=== PATIENT | male | born 1930 | race Caucasian/White ===

== ENCOUNTER 2019-08-28 12:56 | Inpatient (IN) | payer BC, OTHER ==
[~2019-08-28] VITALS: Ht 185.4 cm; Wt 93.0 kg
[2019-08-28] MEDS ORDERED: ALBUTEROL (0.083%) 2.5MG/3ML NEB HHN STA (13:09)
[2019-08-28] MEDS ORDERED: METHYLPREDNISOLONE SOD SUCC 125 MG/2 ML VIAL IV STA (13:09)
[2019-08-28] MEDS ORDERED: IPRATROPIUM BROMIDE (0.02%) 0.5MG/2.5ML NEB HHN STA (13:09)
[2019-08-28] MEDS ORDERED: SODIUM CHLORIDE 0.9% 1000ML BAG (SEPSIS BOLUS) IV ONE (13:15)
[2019-08-28] MEDS ORDERED: VANCOMYCIN 1 G PREMIX 200 ML IV ONE (13:15)
[2019-08-28] MEDS ORDERED: PIPERACILLIN/TAZ 3.375G PREMIX 50 ML IV ONE (13:15)
[2019-08-28 13:31] LABS: BASOPHILS % 0.2 % (0.0-2.0); EOSINOPHILS % 0.1 % (0.0-5.0); HEMATOCRIT. 33.5 % (42.0-52.0); HEMOGLOBIN. 11.3 g/dL (14.0-18.0); LYMPHOCYTES % 9.9 % (20.0-50.0); MEAN CORPUSCULAR HEMOGLOBIN 36.7 pg (28.0-32.0); MEAN CORPUSCULAR VOLUME 109.1 fL (80.0-94.0); MEAN PLATELET VOLUME 11.1 fl (7.4-10.4); MONOCYTES % 5.6 % (2.0-8.0); NEUTROPHILS % 84.2 % (40.0-76.0); PLATELET 268 x1000/uL (130-400); RED BLOOD CELL COUNT 3.07 mill/uL (4.7-6.1); RED CELL DISTRIBUTION WIDTH 20.9 % (11.6-14.6)
[2019-08-28 13:36] LABS: INR 1.6; PARTIAL THROMBOPLASTIN TIME 31.3 sec (23.4-31.0); PROTHROMBIN TIME 15.7 sec (9.6-11.0)
[2019-08-28 13:38] LABS: CHLORIDE 96 mEq/L (98-107)
[2019-08-28 13:52] LABS: BG BASE EXCESS 8.7 mmol/L (-2.0-2.0); BG BILEVEL POS AIRWAY PRESSURE 15/5; BG CARBOXYHEMOGLOBIN 0.3 % (0.5-1.5); BG DEOXYHEMOGLOBIN 0.4 % (0.0-5.0); BG FRACTION INSPIRED OXYGEN 100; BG HCO3 ACT 34.1 mmol/L (22.0-26.0); BG METHEMOGLOBIN 0.2 % (0.0-1.5); BG OXYGEN SATURATION 99.6 % (92.0-98.5); BG OXYHEMOGLOBIN 99.1 % (94.0-97.0); BG PCO2 51.2 mmHg (35.0-45.0); BG PH 7.441 (7.350-7.450); BG PO2 408.7 mmHg (75.0-100.0); BG SAMPLE SITE RIGHT RADIAL; BG TOTAL HEMOGLOBIN 10.7 g/dL (12.0-18.0); BG VENT MODE MASK - BIPAP; BG VENT RATE 16 set
[2019-08-28] MEDS ORDERED: DIGO125T82 MT (16:59)
[2019-08-28] MEDS ORDERED: FUROSEMIDE 40MG/4ML VIAL IVP NR (17:00)
[2019-08-28] MEDS ORDERED: IPRATROPIUM/ALBUTEROL 0.5-3(2.5)MG/3ML NEB HHN PRN (17:00)
[2019-08-28] MEDS ORDERED: PIPERACILLIN/TAZOBACTAM 3.375 G in DEXT 5% WATER 100 ML IV SCH (17:00)
[2019-08-28] MEDS ORDERED: ONDANSETRON HCL 4MG/2ML INJ IV PRN (17:00)
[2019-08-28] MEDS ORDERED: TAMS-11 PO (17:00)
[2019-08-28] MEDS ORDERED: TRAZ150T78 PO (17:00)
[2019-08-28] MEDS ORDERED: GLIP10TA10 PO (17:00)
[2019-08-28] MEDS ORDERED: QUET25TA34 PO (17:01)
[2019-08-28] MEDS ORDERED: FURO40TA5 PO (17:01)
[2019-08-28] MEDS ORDERED: ASPI-1393 PO (17:02)
[2019-08-28] MEDS ORDERED: CARB-33 PO (17:02)
[2019-08-28] MEDS ORDERED: CARV6.2548 PO (17:03)
[2019-08-28 19:21] LABS: CLARITY URINE CLEAR (CLEAR); COLOR URINE YELLOW (YELLOW); KETONES URINE NEGATIVE (NEGATIVE); LEUKOCYTE ESTERASE URINE NEGATIVE (NEGATIVE); NITRITE URINE NEGATIVE (NEGATIVE); OCCULT BLOOD URINE NEGATIVE (NEGATIVE); PH URINE 7.5 (4.5-8.0); PROTEIN URINE NEGATIVE (NEGATIVE); SPECIFIC GRAVITY URINE 1.008 (1.005-1.030); UROBILINOGEN URINE 0.2 E.U./dL (0.2-1.0)
[2019-08-28 22:30] VITALS: BP 116/84
[2019-08-28 23:31] VITALS: BP 116/64
[2019-08-29] VITALS (15 sets, daily range): BP systolic 78–112; BP diastolic 41–62
[2019-08-29] MEDS ORDERED: DEXTROSE 50% WATER 50ML SYRINGE IV PRN (00:15)
[2019-08-29] MEDS ORDERED: BISACODYL 5MG TABLET PO PRN (00:45)
[2019-08-29] MEDS ORDERED: TEMAZEPAM 15MG CAPSULE PO PRN (00:45)
[2019-08-29] MEDS: PIPERACILLIN/TAZOBACTAM 3.375 G in DEXT 5% WATER 100 ML IV SCH ×5 (01:12→23:43)
[2019-08-29] MEDS: BLOOD SUGAR DIAGNOSTIC STRIP TEST SCH ×4 (06:19→20:47)
[2019-08-29 06:39] LABS: CHLORIDE 98 mEq/L (98-107)
[2019-08-29 06:48] LABS: HEMATOCRIT. 27.8 % (42.0-52.0); HEMOGLOBIN. 9.6 g/dL (14.0-18.0); MEAN CORPUSCULAR HEMOGLOBIN 37.3 pg (28.0-32.0); MEAN PLATELET VOLUME 11.2 fl (7.4-10.4); PLATELET 239 x1000/uL (130-400); RED BLOOD CELL COUNT 2.57 mill/uL (4.7-6.1)
[2019-08-29] MEDS ORDERED: ENOXAPARIN 40MG/0.4ML SYR SUBCUT SCH (09:00)
[2019-08-29] MEDS ORDERED: CARBIDOPA/LEVODOPA 25/250MG TABLET PO SCH (09:00)
[2019-08-29] MEDS ORDERED: CARVEDILOL 6.25 MG TABLET PO SCH (09:00)
[2019-08-29] MEDS ORDERED: FUROSEMIDE 40MG/4ML VIAL IVP SCH (09:00)
[2019-08-29] MEDS ORDERED: BISACODYL 10MG SUPP PR SCH (09:45)
[2019-08-29] MEDS: TAMSULOSIN HCL 0.4MG SR CAPSULE PO SCH ×2 (10:44→17:59)
[2019-08-29] MEDS: QUETIAPINE FUMARATE 25MG TABLET PO SCH ×2 (10:45→13:33)
[2019-08-29] MEDS: GLIPIZIDE 10MG TABLET PO SCH ×2 (10:45→17:58)
[2019-08-29] MEDS: ASPIRIN 81MG EC TABLET PO SCH (10:45)
[2019-08-29] MEDS: ENOXAPARIN 30MG/0.3ML SYR SUBCUT SCH ×2 (10:46→20:42)
[2019-08-29] MEDS: INSULIN LISPRO 100 UNITS/ML SUBCUT SCH ×4 (10:47→21:15)
[2019-08-29] MEDS ORDERED: NA PHOS,M-B/NA PHOS,DI-BA ENEMA 118ML PR SCH (11:00)
[2019-08-29] MEDS ORDERED: PNEUMOCOCCAL 23-VAL P-SAC VAC 0.5 ML IM ONE (12:00)
[2019-08-29] MEDS: CARBIDOPA/LEVODOPA 25/250MG TABLET PO SCH ×2 (13:33→16:56)
[2019-08-29] MEDS ORDERED: P20 PO (13:45)
[2019-08-29] MEDS ORDERED: WARF1TAB46 PO (13:49)
[2019-08-29] MEDS ORDERED: QUET100T PO (13:49)
[2019-08-29] MEDS ORDERED: QUET25TA PO (13:49)
[2019-08-29] MEDS: DEXT 5%/0.45% NACL 1000ML 1,000 ML IV SCH (16:17)
[2019-08-29] MEDS ORDERED: DOCU250C69 PO (16:37)
[2019-08-29] MEDS ORDERED: ASCO500C15 PO (16:37)
[2019-08-29] MEDS ORDERED: SIME125C81 PO (16:37)
[2019-08-29] MEDS ORDERED: CYAN-33 MT (16:37)
[2019-08-29] MEDS ORDERED: TEMA15CA PO (16:40)
[2019-08-29] MEDS: DIGOXIN 125MCG TABLET PO SCH (17:59)
[2019-08-29] MEDS: PREDNISONE 20MG TABLET PO SCH (18:00)
[2019-08-29] MEDS ORDERED: WARFARIN SODIUM 1MG TABLET PO SCH (18:00)
[2019-08-29] MEDS: QUETIAPINE FUMARATE 50MG TABLET PO SCH (20:42)
[2019-08-29] MEDS: TRAZODONE HCL 50MG TABLET PO SCH (20:42)
[2019-08-30] VITALS (12 sets, daily range): BP systolic 94–137; BP diastolic 47–84
[2019-08-30] MEDS: IPRATROPIUM/ALBUTEROL 0.5-3(2.5)MG/3ML NEB HHN SCH ×5 (04:10→20:47)
[2019-08-30] MEDS: PIPERACILLIN/TAZOBACTAM 3.375 G in DEXT 5% WATER 100 ML IV SCH ×4 (04:53→23:26)
[2019-08-30 05:35] LABS: PLATELET ESTIMATE NORMAL
[2019-08-30 07:00] LABS: INR 1.2; PROTHROMBIN TIME 12.4 sec (9.6-11.0)
[2019-08-30 07:09] LABS: CHLORIDE 99 mEq/L (98-107)
[2019-08-30 07:15] LABS: BASOPHILS % 0.4 % (0.0-2.0); EOSINOPHILS % 0.9 % (0.0-5.0); HEMATOCRIT. 29.6 % (42.0-52.0); HEMOGLOBIN. 9.9 g/dL (14.0-18.0); LYMPHOCYTES % 11.1 % (20.0-50.0); MEAN CORPUSCULAR HEMOGLOBIN 37.1 pg (28.0-32.0); MEAN CORPUSCULAR VOLUME 110.6 fL (80.0-94.0); MEAN PLATELET VOLUME 11.1 fl (7.4-10.4); MONOCYTES % 7.8 % (2.0-8.0); NEUTROPHILS % 79.8 % (40.0-76.0); PLATELET 240 x1000/uL (130-400); RED BLOOD CELL COUNT 2.68 mill/uL (4.7-6.1); RED CELL DISTRIBUTION WIDTH 21.1 % (11.6-14.6)
[2019-08-30] MEDS: BLOOD SUGAR DIAGNOSTIC STRIP TEST SCH ×4 (07:41→21:00)
[2019-08-30] MEDS: QUETIAPINE FUMARATE 25MG TABLET PO SCH ×3 (08:00→15:43)
[2019-08-30] MEDS: DEXT 5%/0.45% NACL 1000ML 1,000 ML IV SCH ×3 (08:31→23:17)
[2019-08-30] MEDS: ENOXAPARIN 30MG/0.3ML SYR SUBCUT SCH ×2 (08:32→20:39)
[2019-08-30] MEDS: TAMSULOSIN HCL 0.4MG SR CAPSULE PO SCH ×2 (08:33→18:18)
[2019-08-30] MEDS: ASPIRIN 81MG EC TABLET PO SCH (08:34)
[2019-08-30] MEDS: CARBIDOPA/LEVODOPA 25/250MG TABLET PO SCH ×3 (08:34→18:16)
[2019-08-30] MEDS: GLIPIZIDE 10MG TABLET PO SCH ×2 (08:34→18:13)
[2019-08-30] MEDS: PREDNISONE 20MG TABLET PO SCH (08:34)
[2019-08-30] MEDS: INSULIN LISPRO 100 UNITS/ML SUBCUT SCH ×4 (08:36→21:00)
[2019-08-30 09:18] LABS: BG BASE EXCESS 9.6 mmol/L (-2.0-2.0); BG CARBOXYHEMOGLOBIN 0.1 % (0.5-1.5); BG DEOXYHEMOGLOBIN 11.3 % (0.0-5.0); BG FRACTION INSPIRED OXYGEN 32; BG HCO3 ACT 33.8 mmol/L (22.0-26.0); BG METHEMOGLOBIN 0.1 % (0.0-1.5); BG OXYGEN SATURATION 88.7 % (92.0-98.5); BG OXYHEMOGLOBIN 88.5 % (94.0-97.0); BG PCO2 44.3 mmHg (35.0-45.0); BG PH 7.501 (7.350-7.450); BG PO2 54.8 mmHg (75.0-100.0); BG SAMPLE SITE RIGHT RADIAL; BG TOTAL HEMOGLOBIN 12.2 g/dL (12.0-18.0); BG VENT MODE NASAL CANNULA
[2019-08-30] MEDS ORDERED: SORBITOL 70% SOLN 30ML PO NR (11:30)
[2019-08-30] MEDS ORDERED: WARFARIN SODIUM 1MG TABLET PO SCH (18:00)
[2019-08-30] MEDS: DIGOXIN 125MCG TABLET PO SCH (18:13)
[2019-08-30] MEDS: TRAZODONE HCL 50MG TABLET PO SCH (20:39)
[2019-08-30] MEDS: QUETIAPINE FUMARATE 50MG TABLET PO SCH (21:00)
[2019-08-31] VITALS (62 sets, daily range): BP systolic 86–136; BP diastolic 45–80
[2019-08-31] MEDS: IPRATROPIUM/ALBUTEROL 0.5-3(2.5)MG/3ML NEB HHN SCH ×6 (01:06→20:36)
[2019-08-31] MEDS: PIPERACILLIN/TAZOBACTAM 3.375 G in DEXT 5% WATER 100 ML IV SCH ×3 (06:05→19:18)
[2019-08-31] MEDS: BLOOD SUGAR DIAGNOSTIC STRIP TEST SCH ×4 (06:26→21:00)
[2019-08-31 07:43] LABS: BASOPHILS % 0.4 % (0.0-2.0); HEMATOCRIT. 27.6 % (42.0-52.0); HEMOGLOBIN. 9.5 g/dL (14.0-18.0); LYMPHOCYTES % 9.4 % (20.0-50.0); MEAN CORPUSCULAR HEMOGLOBIN 37.3 pg (28.0-32.0); MEAN CORPUSCULAR VOLUME 108.3 fL (80.0-94.0); MEAN PLATELET VOLUME 10.8 fl (7.4-10.4); MONOCYTES % 6.6 % (2.0-8.0); NEUTROPHILS % 81.6 % (40.0-76.0); PLATELET 266 x1000/uL (130-400); RED BLOOD CELL COUNT 2.55 mill/uL (4.7-6.1); RED CELL DISTRIBUTION WIDTH 20.5 % (11.6-14.6)
[2019-08-31 07:46] LABS: CHLORIDE 100 mEq/L (98-107); INR 1.3; PROTHROMBIN TIME 13.4 sec (9.6-11.0)
[2019-08-31] MEDS: TAMSULOSIN HCL 0.4MG SR CAPSULE PO SCH ×2 (09:00→17:00)
[2019-08-31] MEDS: CARBIDOPA/LEVODOPA 25/250MG TABLET PO SCH ×3 (09:07→17:59)
[2019-08-31] MEDS: GLIPIZIDE 10MG TABLET PO SCH ×2 (09:07→18:00)
[2019-08-31] MEDS: ASPIRIN 81MG EC TABLET PO SCH (09:07)
[2019-08-31] MEDS: QUETIAPINE FUMARATE 25MG TABLET PO SCH ×3 (09:07→17:59)
[2019-08-31] MEDS: ENOXAPARIN 30MG/0.3ML SYR SUBCUT SCH ×2 (09:08→21:34)
[2019-08-31] MEDS: PREDNISONE 20MG TABLET PO SCH (09:08)
[2019-08-31] MEDS: INSULIN LISPRO 100 UNITS/ML SUBCUT SCH ×4 (09:10→22:06)
[2019-08-31 10:17] LABS: BG BASE EXCESS 6.2 mmol/L (-2.0-2.0); BG BILEVEL POS AIRWAY PRESSURE 18/5; BG CARBOXYHEMOGLOBIN 0.3 % (0.5-1.5); BG DEOXYHEMOGLOBIN 12.1 % (0.0-5.0); BG FRACTION INSPIRED OXYGEN 100; BG HCO3 ACT 35.6 mmol/L (22.0-26.0); BG METHEMOGLOBIN 0.2 % (0.0-1.5); BG OXYGEN SATURATION 87.8 % (92.0-98.5); BG OXYHEMOGLOBIN 87.4 % (94.0-97.0); BG PCO2 82.1 mmHg (35.0-45.0); BG PH 7.255 (7.350-7.450); BG PO2 67.6 mmHg (75.0-100.0); BG SAMPLE SITE LEFT RADIAL; BG TOTAL HEMOGLOBIN 11.1 g/dL (12.0-18.0); BG VENT MODE MASK - BIPAP
[2019-08-31] MEDS: MIDAZOLAM HCL 50 MG in DEXTROSE 5% WATER 40 ML IV PRN ×3 (11:10→20:53)
[2019-08-31 11:13] LABS: BG BASE EXCESS 9.1 mmol/L (-2.0-2.0); BG CARBOXYHEMOGLOBIN 0.3 % (0.5-1.5); BG DEOXYHEMOGLOBIN 1.2 % (0.0-5.0); BG FRACTION INSPIRED OXYGEN 100; BG HCO3 ACT 34.3 mmol/L (22.0-26.0); BG METHEMOGLOBIN 0.3 % (0.0-1.5); BG OXYGEN SATURATION 98.8 % (92.0-98.5); BG OXYHEMOGLOBIN 98.2 % (94.0-97.0); BG PCO2 50.5 mmHg (35.0-45.0); BG PO2 197.8 mmHg (75.0-100.0); BG SAMPLE SITE RIGHT RADIAL; BG TIDAL VOLUME(mL) 550 mL; BG TOTAL HEMOGLOBIN 10.8 g/dL (12.0-18.0); BG VENT MODE VENT - A/C; BG VENT RATE 16 set
[2019-08-31] MEDS ORDERED: POTASSIUM CHLORIDE 20MEQ TABLET SR PO SCH (11:30)
[2019-08-31] MEDS: ACETYLCYSTEINE 100MG/ML 10% VIAL 4ML INH SCH ×2 (12:53→16:44)
[2019-08-31] MEDS: METHYLPREDNISOLONE SOD SUCC 40 MG/ML VIAL IV SCH ×2 (13:03→21:33)
[2019-08-31] MEDS: DEXT 5%/0.45% NACL 1000ML 1,000 ML IV SCH (14:11)
[2019-08-31 14:16] LABS: BG BASE EXCESS 6.7 mmol/L (-2.0-2.0); BG CARBOXYHEMOGLOBIN 0.1 % (0.5-1.5); BG DEOXYHEMOGLOBIN 2.5 % (0.0-5.0); BG FRACTION INSPIRED OXYGEN 70; BG HCO3 ACT 29.9 mmol/L (22.0-26.0); BG METHEMOGLOBIN 0.3 % (0.0-1.5); BG OXYGEN SATURATION 97.5 % (92.0-98.5); BG OXYHEMOGLOBIN 97.1 % (94.0-97.0); BG PCO2 36.9 mmHg (35.0-45.0); BG PH 7.526 (7.350-7.450); BG PO2 101.3 mmHg (75.0-100.0); BG SAMPLE SITE RIGHT BRACHIAL; BG TIDAL VOLUME(mL) 550 mL; BG TOTAL HEMOGLOBIN 9.5 g/dL (12.0-18.0); BG VENT MODE VENT - A/C; BG VENT RATE 16 set
[2019-08-31] MEDS ORDERED: SORBITOL 70% SOLN 30ML PO NR (16:00)
[2019-08-31] MEDS: METOCLOPRAMIDE HCL 10MG/2ML VIAL IV SCH (17:59)
[2019-08-31] MEDS ORDERED: WARFARIN SODIUM 2MG TABLET PO NR (18:00)
[2019-08-31] MEDS: DIGOXIN 125MCG TABLET PO SCH (18:00)
[2019-08-31] MEDS: QUETIAPINE FUMARATE 50MG TABLET PO SCH (20:54)
[2019-08-31] MEDS: TRAZODONE HCL 50MG TABLET PO SCH (20:54)
[2019-09-01] VITALS (63 sets, daily range): BP systolic 83–164; BP diastolic 29–81
[2019-09-01] MEDS: PIPERACILLIN/TAZOBACTAM 3.375 G in DEXT 5% WATER 100 ML IV SCH ×5 (00:12→23:26)
[2019-09-01] MEDS: METOCLOPRAMIDE HCL 10MG/2ML VIAL IV SCH ×5 (00:12→23:26)
[2019-09-01] MEDS: ACETYLCYSTEINE 100MG/ML 10% VIAL 4ML INH SCH ×3 (00:31→16:13)
[2019-09-01] MEDS: IPRATROPIUM/ALBUTEROL 0.5-3(2.5)MG/3ML NEB HHN SCH ×6 (00:31→20:39)
[2019-09-01] MEDS: DEXT 5%/0.45% NACL 1000ML 1,000 ML IV SCH (05:24)
[2019-09-01] MEDS: METHYLPREDNISOLONE SOD SUCC 40 MG/ML VIAL IV SCH ×3 (05:24→21:32)
[2019-09-01 06:18] LABS: BASOPHILS % 0.4 % (0.0-2.0); HEMATOCRIT. 27.5 % (42.0-52.0); HEMOGLOBIN. 9.4 g/dL (14.0-18.0); LYMPHOCYTES % 20.3 % (20.0-50.0); MEAN CORPUSCULAR HEMOGLOBIN 37.1 pg (28.0-32.0); MEAN CORPUSCULAR VOLUME 108.7 fL (80.0-94.0); MEAN PLATELET VOLUME 10.8 fl (7.4-10.4); MONOCYTES % 7.7 % (2.0-8.0); NEUTROPHILS % 71.6 % (40.0-76.0); PLATELET 235 x1000/uL (130-400); RED BLOOD CELL COUNT 2.53 mill/uL (4.7-6.1); RED CELL DISTRIBUTION WIDTH 20.8 % (11.6-14.6)
[2019-09-01 06:21] LABS: INR 1.4; PROTHROMBIN TIME 14.3 sec (9.6-11.0)
[2019-09-01 06:24] LABS: CHLORIDE 99 mEq/L (98-107)
[2019-09-01] MEDS: INSULIN LISPRO 100 UNITS/ML SUBCUT SCH ×4 (06:49→23:25)
[2019-09-01] MEDS: BLOOD SUGAR DIAGNOSTIC STRIP TEST SCH ×4 (06:50→23:08)
[2019-09-01] MEDS ORDERED: POTASSIUM CHLORIDE 20MEQ TABLET SR PO NR (08:35)
[2019-09-01 09:04] LABS: BG CARBOXYHEMOGLOBIN 0.3 % (0.5-1.5); BG DEOXYHEMOGLOBIN 1.9 % (0.0-5.0); BG FRACTION INSPIRED OXYGEN 60; BG HCO3 ACT 32.9 mmol/L (22.0-26.0); BG METHEMOGLOBIN 0.3 % (0.0-1.5); BG OXYGEN SATURATION 98.1 % (92.0-98.5); BG OXYHEMOGLOBIN 97.5 % (94.0-97.0); BG PCO2 42.4 mmHg (35.0-45.0); BG PH 7.508 (7.350-7.450); BG PO2 112.6 mmHg (75.0-100.0); BG SAMPLE SITE RIGHT RADIAL; BG TIDAL VOLUME(mL) 550 mL; BG TOTAL HEMOGLOBIN 10.3 g/dL (12.0-18.0); BG VENT MODE VENT - A/C; BG VENT RATE 12 set
[2019-09-01] MEDS ORDERED: SORBITOL 70% SOLN 30ML PO ONE (09:15)
[2019-09-01] MEDS: CARBIDOPA/LEVODOPA 25/250MG TABLET PO SCH ×3 (09:41→16:30)
[2019-09-01] MEDS: GLIPIZIDE 10MG TABLET PO SCH ×2 (09:41→16:30)
[2019-09-01] MEDS: QUETIAPINE FUMARATE 25MG TABLET PO SCH (09:41)
[2019-09-01] MEDS: TAMSULOSIN HCL 0.4MG SR CAPSULE PO SCH (09:41)
[2019-09-01] MEDS: ENOXAPARIN 30MG/0.3ML SYR SUBCUT SCH ×2 (09:41→21:33)
[2019-09-01] MEDS: ASPIRIN 81MG EC TABLET PO SCH (11:15)
[2019-09-01] MEDS: INSULIN GLARGINE UD 100 UNITS/ML SYR SUBCUT SCH ×2 (12:26→23:25)
[2019-09-01 14:21] LABS: VITAMIN B12 SERUM 1618 pg/mL (211-911)
[2019-09-01] MEDS ORDERED: SORBITOL 70% SOLN 30ML PO NR (16:08)
[2019-09-01] MEDS: MIDAZOLAM HCL 50 MG in DEXTROSE 5% WATER 40 ML IV PRN (16:30)
[2019-09-01] MEDS: DIGOXIN 125MCG TABLET PO SCH (17:26)
[2019-09-01] MEDS ORDERED: WARFARIN SODIUM 2MG TABLET PO NR (18:00)
[2019-09-02] VITALS (47 sets, daily range): BP systolic 78–145; BP diastolic 26–85
[2019-09-02] MEDS: IPRATROPIUM/ALBUTEROL 0.5-3(2.5)MG/3ML NEB HHN SCH ×6 (01:00→19:50)
[2019-09-02] MEDS: ACETYLCYSTEINE 100MG/ML 10% VIAL 4ML INH SCH ×3 (01:00→15:46)
[2019-09-02] MEDS: INSULIN LISPRO 100 UNITS/ML SUBCUT SCH ×3 (05:24→17:39)
[2019-09-02] MEDS: BLOOD SUGAR DIAGNOSTIC STRIP TEST SCH ×4 (05:24→23:59)
[2019-09-02] MEDS: METHYLPREDNISOLONE SOD SUCC 40 MG/ML VIAL IV SCH ×3 (05:32→21:34)
[2019-09-02] MEDS: METOCLOPRAMIDE HCL 10MG/2ML VIAL IV SCH ×3 (05:32→17:39)
[2019-09-02] MEDS: PIPERACILLIN/TAZOBACTAM 3.375 G in DEXT 5% WATER 100 ML IV SCH ×3 (05:33→17:41)
[2019-09-02 06:26] LABS: BASOPHILS % 0.1 % (0.0-2.0); HEMATOCRIT. 28.5 % (42.0-52.0); HEMOGLOBIN. 9.7 g/dL (14.0-18.0); LYMPHOCYTES % 13.8 % (20.0-50.0); MEAN CORPUSCULAR HEMOGLOBIN 36.7 pg (28.0-32.0); MEAN CORPUSCULAR VOLUME 107.6 fL (80.0-94.0); MEAN PLATELET VOLUME 10.3 fl (7.4-10.4); MONOCYTES % 8.4 % (2.0-8.0); NEUTROPHILS % 77.7 % (40.0-76.0); PLATELET 374 x1000/uL (130-400); RED BLOOD CELL COUNT 2.65 mill/uL (4.7-6.1); RED CELL DISTRIBUTION WIDTH 20.8 % (11.6-14.6)
[2019-09-02 06:32] LABS: INR 1.9; PROTHROMBIN TIME 19.1 sec (9.6-11.0)
[2019-09-02 06:33] LABS: CHLORIDE 102 mEq/L (98-107)
[2019-09-02] MEDS: MIDAZOLAM HCL 50 MG in DEXTROSE 5% WATER 40 ML IV PRN (06:43)
[2019-09-02] MEDS: DIGOXIN 125MCG TABLET PO SCH (07:16)
[2019-09-02] MEDS: ASPIRIN 81MG EC TABLET PO SCH (08:35)
[2019-09-02] MEDS: ENOXAPARIN 30MG/0.3ML SYR SUBCUT SCH (08:35)
[2019-09-02] MEDS: GLIPIZIDE 10MG TABLET PO SCH ×2 (08:36→17:39)
[2019-09-02] MEDS: CARBIDOPA/LEVODOPA 25/250MG TABLET PO SCH ×3 (08:36→17:39)
[2019-09-02] MEDS ORDERED: POTASSIUM CHLORIDE INJ 40 MEQ in DEXT 5% WATER 250 ML IV ONE (09:00)
[2019-09-02 09:38] LABS: BG BASE EXCESS 7.6 mmol/L (-2.0-2.0); BG CARBOXYHEMOGLOBIN 0.3 % (0.5-1.5); BG DEOXYHEMOGLOBIN 2.8 % (0.0-5.0); BG FRACTION INSPIRED OXYGEN 60; BG METHEMOGLOBIN 0.2 % (0.0-1.5); BG OXYGEN SATURATION 97.2 % (92.0-98.5); BG OXYHEMOGLOBIN 96.7 % (94.0-97.0); BG PCO2 38.7 mmHg (35.0-45.0); BG PH 7.521 (7.350-7.450); BG PO2 92.9 mmHg (75.0-100.0); BG SAMPLE SITE RIGHT RADIAL; BG TIDAL VOLUME(mL) 550 mL; BG TOTAL HEMOGLOBIN 10.4 g/dL (12.0-18.0); BG VENT MODE VENT - SIMV; BG VENT RATE 10 set
[2019-09-02] MEDS ORDERED: MORPHINE SULFATE 2 MG/ML CPJ (NOT FOR IM USE) IV PRN (11:30)
[2019-09-02] MEDS: INSULIN GLARGINE UD 100 UNITS/ML SYR SUBCUT SCH ×2 (11:32→23:47)
[2019-09-02] MEDS: QUETIAPINE FUMARATE 25MG TABLET PO SCH ×2 (12:11→17:39)
[2019-09-02] MEDS ORDERED: DIGOXIN 125MCG TABLET NG NR (18:00)
[2019-09-02] MEDS ORDERED: WARFARIN SODIUM 1MG TABLET PO NR (18:00)
[2019-09-02] MEDS: TEMAZEPAM 15MG CAPSULE PO PRN (21:32)
[2019-09-02] MEDS: TRAZODONE HCL 50MG TABLET PO PRN (21:32)
[2019-09-02] MEDS: QUETIAPINE FUMARATE 50MG TABLET PO SCH (21:33)
[2019-09-03] VITALS (48 sets, daily range): BP systolic 92–156; BP diastolic 38–98
[2019-09-03] MEDS: METOCLOPRAMIDE HCL 10MG/2ML VIAL IV SCH ×5 (00:02→23:38)
[2019-09-03] MEDS: INSULIN LISPRO 100 UNITS/ML SUBCUT SCH ×5 (00:04→23:40)
[2019-09-03] MEDS: PIPERACILLIN/TAZOBACTAM 3.375 G in DEXT 5% WATER 100 ML IV SCH ×5 (00:04→23:39)
[2019-09-03] MEDS: ACETYLCYSTEINE 100MG/ML 10% VIAL 4ML INH SCH ×3 (00:05→16:33)
[2019-09-03] MEDS: IPRATROPIUM/ALBUTEROL 0.5-3(2.5)MG/3ML NEB HHN SCH ×6 (00:05→21:12)
[2019-09-03] MEDS: ACETAMINOPHEN 325MG TABLET PO PRN (01:49)
[2019-09-03] MEDS: BLOOD SUGAR DIAGNOSTIC STRIP TEST SCH ×4 (06:12→23:39)
[2019-09-03] MEDS: METHYLPREDNISOLONE SOD SUCC 40 MG/ML VIAL IV SCH ×2 (06:19→17:36)
[2019-09-03] MEDS: MIDAZOLAM HCL 50 MG in DEXTROSE 5% WATER 40 ML IV PRN (06:21)
[2019-09-03 06:52] LABS: BASOPHILS % 0.1 % (0.0-2.0); HEMATOCRIT. 30.2 % (42.0-52.0); HEMOGLOBIN. 10.2 g/dL (14.0-18.0); LYMPHOCYTES % 9.2 % (20.0-50.0); MEAN CORPUSCULAR HEMOGLOBIN 36.4 pg (28.0-32.0); MEAN CORPUSCULAR VOLUME 108.5 fL (80.0-94.0); MEAN PLATELET VOLUME 9.9 fl (7.4-10.4); MONOCYTES % 8.8 % (2.0-8.0); NEUTROPHILS % 81.9 % (40.0-76.0); PLATELET 380 x1000/uL (130-400); RED BLOOD CELL COUNT 2.79 mill/uL (4.7-6.1); RED CELL DISTRIBUTION WIDTH 20.8 % (11.6-14.6)
[2019-09-03 07:11] LABS: INR 1.9; PROTHROMBIN TIME 18.9 sec (9.6-11.0)
[2019-09-03 07:38] LABS: CHLORIDE 104 mEq/L (98-107)
[2019-09-03] MEDS ORDERED: SORBITOL 70% SOLN 30ML PO NR (08:45)
[2019-09-03] MEDS: ENOXAPARIN 40MG/0.4ML SYR SUBCUT SCH (09:03)
[2019-09-03] MEDS: ASPIRIN 81MG EC TABLET PO SCH (09:04)
[2019-09-03] MEDS: GLIPIZIDE 10MG TABLET PO SCH ×2 (09:04→17:36)
[2019-09-03] MEDS: CARBIDOPA/LEVODOPA 25/250MG TABLET PO SCH ×3 (09:04→17:36)
[2019-09-03] MEDS: QUETIAPINE FUMARATE 25MG TABLET PO SCH ×3 (09:04→17:36)
[2019-09-03 09:08] LABS: FOLATE HEMATOCRIT 28.6 % (37.5-51.0)
[2019-09-03 09:56] LABS: BG BASE EXCESS 6.3 mmol/L (-2.0-2.0); BG CARBOXYHEMOGLOBIN 0.6 % (0.5-1.5); BG DEOXYHEMOGLOBIN 2.5 % (0.0-5.0); BG FRACTION INSPIRED OXYGEN 60; BG HCO3 ACT 29.6 mmol/L (22.0-26.0); BG METHEMOGLOBIN 0.3 % (0.0-1.5); BG OXYGEN SATURATION 97.5 % (92.0-98.5); BG OXYHEMOGLOBIN 96.6 % (94.0-97.0); BG PCO2 37.8 mmHg (35.0-45.0); BG PH 7.512 (7.350-7.450); BG PO2 94.4 mmHg (75.0-100.0); BG PRESSURE SUPPORT 15; BG SAMPLE SITE RIGHT RADIAL; BG TIDAL VOLUME(mL) 550 mL; BG TOTAL HEMOGLOBIN 11.2 g/dL (12.0-18.0); BG VENT MODE VENT - SIMV; BG VENT RATE 8 set
[2019-09-03] MEDS: INSULIN GLARGINE UD 100 UNITS/ML SYR SUBCUT SCH ×2 (10:46→22:21)
[2019-09-03] MEDS: DIGOXIN 125MCG TABLET PO SCH (17:36)
[2019-09-03] MEDS ORDERED: WARFARIN SODIUM 1MG TABLET PO NR (18:00)
[2019-09-03] MEDS: TRAZODONE HCL 50MG TABLET PO PRN (21:54)
[2019-09-03] MEDS: QUETIAPINE FUMARATE 50MG TABLET PO SCH (21:55)
[2019-09-03] MEDS: TEMAZEPAM 15MG CAPSULE PO PRN (21:55)
[2019-09-04] VITALS (39 sets, daily range): BP systolic 100–147; BP diastolic 37–74
[2019-09-04] MEDS: ACETYLCYSTEINE 100MG/ML 10% VIAL 4ML INH SCH ×2 (00:41→15:54)
[2019-09-04] MEDS: IPRATROPIUM/ALBUTEROL 0.5-3(2.5)MG/3ML NEB HHN SCH ×6 (00:41→21:30)
[2019-09-04] MEDS: LACTULOSE 20G/30ML UDC PO SCH ×3 (02:22→17:07)
[2019-09-04] MEDS: METOCLOPRAMIDE HCL 10MG/2ML VIAL IV SCH ×3 (06:18→17:07)
[2019-09-04] MEDS: BLOOD SUGAR DIAGNOSTIC STRIP TEST SCH ×3 (06:19→17:19)
[2019-09-04] MEDS: PIPERACILLIN/TAZOBACTAM 3.375 G in DEXT 5% WATER 100 ML IV SCH ×3 (06:21→17:07)
[2019-09-04 06:22] LABS: CHLORIDE 105 mEq/L (98-107)
[2019-09-04 06:25] LABS: HEMATOCRIT. 31.6 % (42.0-52.0); HEMOGLOBIN. 10.6 g/dL (14.0-18.0); MEAN CORPUSCULAR HEMOGLOBIN 36.9 pg (28.0-32.0); MEAN CORPUSCULAR VOLUME 109.7 fL (80.0-94.0); MEAN PLATELET VOLUME 9.4 fl (7.4-10.4); PLATELET 358 x1000/uL (130-400); RED BLOOD CELL COUNT 2.88 mill/uL (4.7-6.1); RED CELL DISTRIBUTION WIDTH 21.4 % (11.6-14.6)
[2019-09-04] MEDS: INSULIN LISPRO 100 UNITS/ML SUBCUT SCH ×3 (06:26→17:27)
[2019-09-04 07:23] LABS: INR 1.8; PROTHROMBIN TIME 17.7 sec (9.6-11.0)
[2019-09-04 08:29] LABS: BG BASE EXCESS 3.5 mmol/L (-2.0-2.0); BG CARBOXYHEMOGLOBIN 0.3 % (0.5-1.5); BG DEOXYHEMOGLOBIN 2.3 % (0.0-5.0); BG FRACTION INSPIRED OXYGEN 50; BG HCO3 ACT 26.6 mmol/L (22.0-26.0); BG METHEMOGLOBIN 0.1 % (0.0-1.5); BG OXYGEN SATURATION 97.7 % (92.0-98.5); BG OXYHEMOGLOBIN 97.3 % (94.0-97.0); BG PCO2 35.1 mmHg (35.0-45.0); BG PH 7.498 (7.350-7.450); BG PO2 106.2 mmHg (75.0-100.0); BG PRESSURE SUPPORT 12; BG SAMPLE SITE RIGHT BRACHIAL; BG TIDAL VOLUME(mL) 550 mL; BG TOTAL HEMOGLOBIN 11.4 g/dL (12.0-18.0); BG VENT MODE VENT - SIMV; BG VENT RATE 6 set
[2019-09-04] MEDS: ENOXAPARIN 40MG/0.4ML SYR SUBCUT SCH (09:51)
[2019-09-04] MEDS: METHYLPREDNISOLONE SOD SUCC 40 MG/ML VIAL IV SCH ×2 (09:53→17:00)
[2019-09-04] MEDS: CARBIDOPA/LEVODOPA 25/250MG TABLET PO SCH ×3 (09:53→17:08)
[2019-09-04] MEDS: QUETIAPINE FUMARATE 25MG TABLET PO SCH ×3 (09:53→17:08)
[2019-09-04] MEDS: INSULIN GLARGINE UD 100 UNITS/ML SYR SUBCUT SCH ×2 (09:53→22:33)
[2019-09-04] MEDS: ASPIRIN 81MG EC TABLET PO SCH (09:54)
[2019-09-04] MEDS: GLIPIZIDE 10MG TABLET PO SCH ×2 (09:54→17:08)
[2019-09-04 12:04] LABS: BG CARBOXYHEMOGLOBIN 0.3 % (0.5-1.5); BG DEOXYHEMOGLOBIN 4.6 % (0.0-5.0); BG FRACTION INSPIRED OXYGEN 40; BG HCO3 ACT 30.8 mmol/L (22.0-26.0); BG OXYGEN SATURATION 95.4 % (92.0-98.5); BG OXYHEMOGLOBIN 95.1 % (94.0-97.0); BG PH 7.494 (7.350-7.450); BG PO2 79.1 mmHg (75.0-100.0); BG PRESSURE SUPPORT 8; BG SAMPLE SITE RIGHT BRACHIAL; BG TOTAL HEMOGLOBIN 11.5 g/dL (12.0-18.0); BG VENT MODE MASK - CPAP
[2019-09-04] MEDS: DIGOXIN 125MCG TABLET PO SCH (17:08)
[2019-09-04] MEDS ORDERED: WARFARIN SODIUM 2MG TABLET PO NR (18:00)
[2019-09-04 18:50] LABS: PLATELET ESTIMATE NORMAL
[2019-09-04] MEDS: QUETIAPINE FUMARATE 50MG TABLET PO SCH (20:38)
[2019-09-04] MEDS: METHYLPREDNISOLONE SOD SUCC 125 MG/2 ML VIAL IV SCH (20:38)
[2019-09-04] MEDS: TRAZODONE HCL 50MG TABLET PO PRN (22:22)
[2019-09-05] VITALS: BP 108/58
[2019-09-05] MEDS: ACETYLCYSTEINE 100MG/ML 10% VIAL 4ML INH SCH
[2019-09-05] MEDS: IPRATROPIUM/ALBUTEROL 0.5-3(2.5)MG/3ML NEB HHN SCH ×6 (00:26→20:57)
[2019-09-05] MEDS: METOCLOPRAMIDE HCL 10MG/2ML VIAL IV SCH ×4 (00:42→17:53)
[2019-09-05] MEDS: PIPERACILLIN/TAZOBACTAM 3.375 G in DEXT 5% WATER 100 ML IV SCH ×2 (00:42→06:46)
[2019-09-05] MEDS: INSULIN LISPRO 100 UNITS/ML SUBCUT SCH ×4 (00:42→17:56)
[2019-09-05] MEDS: BLOOD SUGAR DIAGNOSTIC STRIP TEST SCH ×4 (00:43→17:36)
[2019-09-05] MEDS: ACETAMINOPHEN 325MG TABLET PO PRN (02:26)
[2019-09-05 04:00] VITALS: BP 125/44
[2019-09-05 04:08] LABS: FOLATE HEMOLYSATE > 620.0 ng/mL (Not Estab.); FOLATE RBC > 2168 ng/mL (>498)
[2019-09-05 07:05] LABS: INR 1.7; PROTHROMBIN TIME 17.3 sec (9.6-11.0)
[2019-09-05 07:25] LABS: CHLORIDE 108 mEq/L (98-107)
[2019-09-05 07:35] LABS: HEMATOCRIT. 30.2 % (42.0-52.0); HEMOGLOBIN. 10.1 g/dL (14.0-18.0); MEAN CORPUSCULAR HEMOGLOBIN 36.8 pg (28.0-32.0); MEAN CORPUSCULAR VOLUME 109.8 fL (80.0-94.0); MEAN PLATELET VOLUME 9.4 fl (7.4-10.4); PLATELET 311 x1000/uL (130-400); RED BLOOD CELL COUNT 2.75 mill/uL (4.7-6.1); RED CELL DISTRIBUTION WIDTH 21.4 % (11.6-14.6)
[2019-09-05 08:00] VITALS: BP 128/90
[2019-09-05] MEDS: ENOXAPARIN 40MG/0.4ML SYR SUBCUT SCH (09:19)
[2019-09-05] MEDS: QUETIAPINE FUMARATE 25MG TABLET PO SCH ×3 (09:19→17:53)
[2019-09-05] MEDS: GLIPIZIDE 10MG TABLET PO SCH ×2 (09:19→17:53)
[2019-09-05] MEDS: METHYLPREDNISOLONE SOD SUCC 125 MG/2 ML VIAL IV SCH ×2 (09:19→17:52)
[2019-09-05] MEDS: ASPIRIN 81MG EC TABLET PO SCH (09:19)
[2019-09-05] MEDS: INSULIN GLARGINE UD 100 UNITS/ML SYR SUBCUT SCH ×2 (11:21→23:33)
[2019-09-05 12:00] VITALS: BP 148/62
[2019-09-05] MEDS: CARBIDOPA/LEVODOPA 25/250MG TABLET PO SCH ×2 (14:13→17:53)
[2019-09-05 16:00] VITALS: BP 134/68
[2019-09-05 17:20] LABS: PLATELET ESTIMATE NORMAL
[2019-09-05] MEDS: DIGOXIN 125MCG TABLET PO SCH (17:53)
[2019-09-05] MEDS ORDERED: WARFARIN SODIUM 2.5MG TABLET PO NR (18:00)
[2019-09-05 20:00] VITALS: BP 129/49
[2019-09-05] MEDS: QUETIAPINE FUMARATE 50MG TABLET PO SCH (20:49)
[2019-09-06] VITALS: BP 111/47
[2019-09-06] MEDS: BLOOD SUGAR DIAGNOSTIC STRIP TEST SCH ×4 (00:08→18:58)
[2019-09-06] MEDS: METOCLOPRAMIDE HCL 10MG/2ML VIAL IV SCH ×5 (00:13→23:17)
[2019-09-06] MEDS: INSULIN LISPRO 100 UNITS/ML SUBCUT SCH ×4 (00:14→19:43)
[2019-09-06] MEDS: IPRATROPIUM/ALBUTEROL 0.5-3(2.5)MG/3ML NEB HHN SCH ×6 (00:49→21:17)
[2019-09-06] MEDS: ACETYLCYSTEINE 100MG/ML 10% VIAL 4ML INH SCH (00:50)
[2019-09-06] MEDS: TRAZODONE HCL 50MG TABLET PO PRN (02:47)
[2019-09-06] MEDS: TEMAZEPAM 15MG CAPSULE PO PRN ×2 (02:53→23:14)
[2019-09-06 04:00] VITALS: BP 105/44
[2019-09-06 06:59] LABS: BASOPHILS % 0.2 % (0.0-2.0); EOSINOPHILS % 0.1 % (0.0-5.0); HEMATOCRIT. 29.4 % (42.0-52.0); HEMOGLOBIN. 9.9 g/dL (14.0-18.0); INR 1.9; LYMPHOCYTES % 12.7 % (20.0-50.0); MEAN CORPUSCULAR HEMOGLOBIN 36.8 pg (28.0-32.0); MEAN CORPUSCULAR VOLUME 109.4 fL (80.0-94.0); MEAN PLATELET VOLUME 9.6 fl (7.4-10.4); MONOCYTES % 8.5 % (2.0-8.0); NEUTROPHILS % 78.5 % (40.0-76.0); PLATELET 289 x1000/uL (130-400); PROTHROMBIN TIME 19.3 sec (9.6-11.0); RED BLOOD CELL COUNT 2.69 mill/uL (4.7-6.1); RED CELL DISTRIBUTION WIDTH 21.5 % (11.6-14.6)
[2019-09-06 08:00] VITALS: BP 118/58
[2019-09-06 08:01] LABS: CHLORIDE 107 mEq/L (98-107)
[2019-09-06] MEDS: CARBIDOPA/LEVODOPA 25/250MG TABLET PO SCH ×3 (08:33→17:00)
[2019-09-06] MEDS: METHYLPREDNISOLONE SOD SUCC 125 MG/2 ML VIAL IV SCH ×2 (08:33→19:09)
[2019-09-06] MEDS: QUETIAPINE FUMARATE 25MG TABLET PO SCH ×3 (08:33→17:00)
[2019-09-06] MEDS: GLIPIZIDE 10MG TABLET PO SCH ×2 (08:33→17:00)
[2019-09-06] MEDS: ASPIRIN 81MG EC TABLET PO SCH (08:33)
[2019-09-06] MEDS: ENOXAPARIN 40MG/0.4ML SYR SUBCUT SCH (08:34)
[2019-09-06] MEDS: INSULIN GLARGINE UD 100 UNITS/ML SYR SUBCUT SCH (10:16)
[2019-09-06] MEDS ORDERED: NA PHOS,M-B/NA PHOS,DI-BA ENEMA 118ML PR NR (11:15)
[2019-09-06 12:00] VITALS: BP 121/70
[2019-09-06 16:00] VITALS: BP 113/57
[2019-09-06] MEDS ORDERED: WARFARIN SODIUM 2.5MG TABLET PO SCH (18:00)
[2019-09-06] MEDS: DIGOXIN 125MCG TABLET PO SCH (19:43)
[2019-09-06 20:00] VITALS: BP 125/51
[2019-09-06] MEDS: QUETIAPINE FUMARATE 50MG TABLET PO SCH (21:21)
[2019-09-07] VITALS: BP 111/50
[2019-09-07] MEDS: TRAZODONE HCL 50MG TABLET PO PRN (00:35)
[2019-09-07] MEDS: BLOOD SUGAR DIAGNOSTIC STRIP TEST SCH ×4 (00:43→17:29)
[2019-09-07] MEDS: INSULIN LISPRO 100 UNITS/ML SUBCUT SCH ×5 (00:46→22:05)
[2019-09-07] MEDS: INSULIN GLARGINE UD 100 UNITS/ML SYR SUBCUT SCH ×3 (00:57→22:05)
[2019-09-07] MEDS: IPRATROPIUM/ALBUTEROL 0.5-3(2.5)MG/3ML NEB HHN SCH ×7 (01:17→23:10)
[2019-09-07 04:00] VITALS: BP 113/53
[2019-09-07] MEDS: METOCLOPRAMIDE HCL 10MG/2ML VIAL IV SCH ×4 (06:00→23:36)
[2019-09-07 08:00] VITALS: BP 122/60
[2019-09-07 08:37] LABS: HEMATOCRIT. 29.1 % (42.0-52.0); MEAN CORPUSCULAR HEMOGLOBIN 37.3 pg (28.0-32.0); MEAN CORPUSCULAR VOLUME 108.8 fL (80.0-94.0); MEAN PLATELET VOLUME 9.7 fl (7.4-10.4); PLATELET 264 x1000/uL (130-400); RED BLOOD CELL COUNT 2.67 mill/uL (4.7-6.1); RED CELL DISTRIBUTION WIDTH 21.5 % (11.6-14.6)
[2019-09-07 08:41] LABS: INR 1.9; PROTHROMBIN TIME 18.5 sec (9.6-11.0)
[2019-09-07] MEDS: ASPIRIN 81MG EC TABLET PO SCH (08:59)
[2019-09-07] MEDS: METHYLPREDNISOLONE SOD SUCC 125 MG/2 ML VIAL IV SCH ×2 (08:59→15:59)
[2019-09-07] MEDS: GLIPIZIDE 10MG TABLET PO SCH ×2 (08:59→15:59)
[2019-09-07] MEDS: CARBIDOPA/LEVODOPA 25/250MG TABLET PO SCH ×3 (08:59→15:59)
[2019-09-07] MEDS: QUETIAPINE FUMARATE 25MG TABLET PO SCH ×3 (08:59→15:59)
[2019-09-07] MEDS: ENOXAPARIN 40MG/0.4ML SYR SUBCUT SCH (09:00)
[2019-09-07 10:44] LABS: CHLORIDE 106 mEq/L (98-107)
[2019-09-07 12:00] VITALS: BP 134/64
[2019-09-07] MEDS ORDERED: LACTULOSE 20G/30ML UDC PO NR (12:30)
[2019-09-07 13:30] LABS: PLATELET ESTIMATE NORMAL
[2019-09-07 16:00] VITALS: BP 94/70
[2019-09-07] MEDS ORDERED: WARFARIN SODIUM 2.5MG TABLET PO SCH (18:00)
[2019-09-07] MEDS: DIGOXIN 125MCG TABLET PO SCH (18:08)
[2019-09-07 20:00] VITALS: BP 126/61
[2019-09-07] MEDS: QUETIAPINE FUMARATE 50MG TABLET PO SCH (20:55)
[2019-09-07] MEDS: LACTULOSE 20G/30ML UDC PO PRN (20:55)
[2019-09-07] MEDS: TEMAZEPAM 15MG CAPSULE PO PRN (22:52)
[2019-09-08] VITALS: BP 118/55
[2019-09-08] MEDS: IPRATROPIUM/ALBUTEROL 0.5-3(2.5)MG/3ML NEB HHN SCH ×6 (02:11→21:01)
[2019-09-08] MEDS: TRAZODONE HCL 50MG TABLET PO PRN (03:10)
[2019-09-08 04:00] VITALS: BP 132/67
[2019-09-08] MEDS: METOCLOPRAMIDE HCL 10MG/2ML VIAL IV SCH ×4 (05:27→23:00)
[2019-09-08] MEDS: BLOOD SUGAR DIAGNOSTIC STRIP TEST SCH ×5 (06:00→23:01)
[2019-09-08] MEDS: INSULIN LISPRO 100 UNITS/ML SUBCUT SCH ×4 (06:37→23:06)
[2019-09-08 07:22] LABS: INR 1.9; PROTHROMBIN TIME 18.5 sec (9.6-11.0)
[2019-09-08 07:34] LABS: HEMATOCRIT. 28.5 % (42.0-52.0); HEMOGLOBIN. 9.6 g/dL (14.0-18.0); MEAN CORPUSCULAR HEMOGLOBIN 36.6 pg (28.0-32.0); MEAN CORPUSCULAR VOLUME 108.7 fL (80.0-94.0); MEAN PLATELET VOLUME 9.6 fl (7.4-10.4); PLATELET 271 x1000/uL (130-400); RED BLOOD CELL COUNT 2.62 mill/uL (4.7-6.1); RED CELL DISTRIBUTION WIDTH 21.5 % (11.6-14.6)
[2019-09-08 07:52] LABS: CHLORIDE 108 mEq/L (98-107)
[2019-09-08 08:00] VITALS: BP 125/62
[2019-09-08] MEDS: METHYLPREDNISOLONE SOD SUCC 125 MG/2 ML VIAL IV SCH ×2 (08:22→16:26)
[2019-09-08] MEDS: QUETIAPINE FUMARATE 25MG TABLET PO SCH ×3 (08:22→16:26)
[2019-09-08] MEDS: GLIPIZIDE 10MG TABLET PO SCH ×2 (08:22→16:26)
[2019-09-08] MEDS: CARBIDOPA/LEVODOPA 25/250MG TABLET PO SCH ×3 (08:22→16:26)
[2019-09-08] MEDS: ASPIRIN 81MG EC TABLET PO SCH (08:22)
[2019-09-08] MEDS: ENOXAPARIN 40MG/0.4ML SYR SUBCUT SCH (08:23)
[2019-09-08] MEDS: INSULIN GLARGINE UD 100 UNITS/ML SYR SUBCUT SCH ×2 (09:32→22:58)
[2019-09-08 12:00] VITALS: BP 129/58
[2019-09-08] MEDS ORDERED: POTASSIUM CHLORIDE 20MEQ TABLET SR PO NR (13:30)
[2019-09-08] MEDS ORDERED: POTASSIUM CHLORIDE 20MEQ/PACKET PO NR (15:30)
[2019-09-08 16:00] VITALS: BP 117/64
[2019-09-08] MEDS: CLINDAMYCIN 600MG PREMIX 50 ML IV SCH ×2 (16:26→23:00)
[2019-09-08 17:32] LABS: BG BASE EXCESS 3.2 mmol/L (-2.0-2.0); BG CARBOXYHEMOGLOBIN 0.4 % (0.5-1.5); BG DEOXYHEMOGLOBIN 3.6 % (0.0-5.0); BG FRACTION INSPIRED OXYGEN 28; BG HCO3 ACT 26.3 mmol/L (22.0-26.0); BG METHEMOGLOBIN 0.3 % (0.0-1.5); BG OXYGEN SATURATION 96.4 % (92.0-98.5); BG OXYHEMOGLOBIN 95.7 % (94.0-97.0); BG PCO2 34.2 mmHg (35.0-45.0); BG PH 7.503 (7.350-7.450); BG PO2 87.8 mmHg (75.0-100.0); BG SAMPLE SITE RIGHT RADIAL; BG TOTAL HEMOGLOBIN 10.4 g/dL (12.0-18.0); BG VENT MODE NASAL CANNULA
[2019-09-08] MEDS ORDERED: WARFARIN SODIUM 2.5MG TABLET PO SCH (18:00)
[2019-09-08] MEDS: DIGOXIN 125MCG TABLET PO SCH (18:23)
[2019-09-08 20:00] VITALS: BP 104/51
[2019-09-08] MEDS: PANTOPRAZOLE SODIUM 40 MG/VIAL IV SCH (20:01)
[2019-09-08] MEDS: QUETIAPINE FUMARATE 50MG TABLET PO SCH (20:01)
[2019-09-08] MEDS: LACTULOSE 20G/30ML UDC PO PRN (23:46)
[2019-09-09] VITALS (57 sets, daily range): BP systolic 95–174; BP diastolic 47–124
[2019-09-09] MEDS: IPRATROPIUM/ALBUTEROL 0.5-3(2.5)MG/3ML NEB HHN SCH ×6 (00:30→21:07)
[2019-09-09] MEDS ORDERED: DEXTROSE 50% WATER 50ML SYRINGE IV PRN (05:15)
[2019-09-09] MEDS: BLOOD SUGAR DIAGNOSTIC STRIP TEST SCH ×4 (06:08→21:28)
[2019-09-09] MEDS: CLINDAMYCIN 600MG PREMIX 50 ML IV SCH ×3 (06:18→22:20)
[2019-09-09] MEDS: METOCLOPRAMIDE HCL 10MG/2ML VIAL IV SCH ×4 (06:18→23:39)
[2019-09-09] MEDS: INSULIN LISPRO 100 UNITS/ML SUBCUT SCH ×4 (07:01→21:00)
[2019-09-09 07:29] LABS: HEMATOCRIT. 27.8 % (42.0-52.0); HEMOGLOBIN. 9.2 g/dL (14.0-18.0); MEAN CORPUSCULAR VOLUME 109.2 fL (80.0-94.0); MEAN PLATELET VOLUME 9.7 fl (7.4-10.4); PLATELET 260 x1000/uL (130-400); RED BLOOD CELL COUNT 2.55 mill/uL (4.7-6.1); RED CELL DISTRIBUTION WIDTH 21.8 % (11.6-14.6)
[2019-09-09 07:50] LABS: INR 1.4; PARTIAL THROMBOPLASTIN TIME 30.3 sec (23.4-31.0); PROTHROMBIN TIME 14.2 sec (9.6-11.0)
[2019-09-09 08:13] LABS: CHLORIDE 108 mEq/L (98-107)
[2019-09-09] MEDS: METHYLPREDNISOLONE SOD SUCC 125 MG/2 ML VIAL IV SCH ×2 (08:32→17:30)
[2019-09-09] MEDS: PANTOPRAZOLE SODIUM 40 MG/VIAL IV SCH ×2 (08:32→21:29)
[2019-09-09] MEDS: CARBIDOPA/LEVODOPA 25/250MG TABLET PO SCH ×3 (09:00→17:30)
[2019-09-09] MEDS: QUETIAPINE FUMARATE 25MG TABLET PO SCH ×3 (09:00→17:30)
[2019-09-09] MEDS: GLIPIZIDE 10MG TABLET PO SCH ×2 (09:00→17:30)
[2019-09-09 09:02] LABS: BG BASE EXCESS 3.7 mmol/L (-2.0-2.0); BG CARBOXYHEMOGLOBIN 0.4 % (0.5-1.5); BG DEOXYHEMOGLOBIN 0.8 % (0.0-5.0); BG FRACTION INSPIRED OXYGEN 100; BG HCO3 ACT 28.7 mmol/L (22.0-26.0); BG OXYGEN SATURATION 99.2 % (92.0-98.5); BG OXYHEMOGLOBIN 98.8 % (94.0-97.0); BG PCO2 45.6 mmHg (35.0-45.0); BG PH 7.417 (7.350-7.450); BG PO2 244.9 mmHg (75.0-100.0); BG SAMPLE SITE RIGHT BRACHIAL; BG TOTAL HEMOGLOBIN 10.7 g/dL (12.0-18.0); BG VENT MODE MASK - NRB
[2019-09-09 09:37] LABS: INR 1.4; PROTHROMBIN TIME 14.6 sec (9.6-11.0)
[2019-09-09] MEDS ORDERED: BISACODYL 10MG SUPP PR PRN (10:30)
[2019-09-09] MEDS ORDERED: NA PHOS,M-B/NA PHOS,DI-BA ENEMA 118ML PR NR (10:30)
[2019-09-09] MEDS: INSULIN GLARGINE UD 100 UNITS/ML SYR SUBCUT SCH ×2 (11:24→21:27)
[2019-09-09] MEDS ORDERED: MIDAZOLAM HCL 5 MG/5 ML VIAL IV NR (12:03)
[2019-09-09] MEDS ORDERED: MIDAZOLAM HCL 5 MG/5 ML VIAL ONE (12:03)
[2019-09-09] MEDS ORDERED: FENTANYL CITRATE/PF 50MCG/ML 2ML VIAL ONE (12:03)
[2019-09-09] MEDS ORDERED: FLUCONAZOLE 100MG TABLET PEG NR (13:00)
[2019-09-09] MEDS: DOCUSATE SODIUM SUGAR FREE 100MG/10ML UDC NG SCH (13:37)
[2019-09-09 14:38] LABS: PLATELET ESTIMATE NORMAL
[2019-09-09] MEDS: DIGOXIN 125MCG TABLET PO SCH (17:30)
[2019-09-09] MEDS: QUETIAPINE FUMARATE 50MG TABLET PO SCH (21:28)
[2019-09-10] VITALS (62 sets, daily range): BP systolic 84–158; BP diastolic 47–99
[2019-09-10] MEDS: ACETYLCYSTEINE 100MG/ML 10% VIAL 4ML INH SCH ×3 (00:49→16:22)
[2019-09-10] MEDS: IPRATROPIUM/ALBUTEROL 0.5-3(2.5)MG/3ML NEB HHN SCH ×6 (00:50→20:30)
[2019-09-10] MEDS: CLINDAMYCIN 600MG PREMIX 50 ML IV SCH (06:00)
[2019-09-10] MEDS: METOCLOPRAMIDE HCL 10MG/2ML VIAL IV SCH ×3 (06:00→17:54)
[2019-09-10 06:43] LABS: INR 1.5; PROTHROMBIN TIME 14.7 sec (9.6-11.0)
[2019-09-10] MEDS: BLOOD SUGAR DIAGNOSTIC STRIP TEST SCH ×4 (08:13→21:39)
[2019-09-10] MEDS: INSULIN LISPRO 100 UNITS/ML SUBCUT SCH ×4 (08:13→21:00)
[2019-09-10] MEDS: DOCUSATE SODIUM SUGAR FREE 100MG/10ML UDC NG SCH (08:13)
[2019-09-10] MEDS: CARBIDOPA/LEVODOPA 25/250MG TABLET PO SCH ×3 (08:14→17:54)
[2019-09-10] MEDS: FLUCONAZOLE 100MG TABLET PEG SCH (08:14)
[2019-09-10] MEDS: METHYLPREDNISOLONE SOD SUCC 125 MG/2 ML VIAL IV SCH ×2 (08:14→17:54)
[2019-09-10] MEDS: GLIPIZIDE 10MG TABLET PO SCH ×2 (08:14→17:54)
[2019-09-10] MEDS: QUETIAPINE FUMARATE 25MG TABLET PO SCH ×3 (08:14→17:54)
[2019-09-10] MEDS: INSULIN GLARGINE UD 100 UNITS/ML SYR SUBCUT SCH ×3 (10:12→21:41)
[2019-09-10] MEDS ORDERED: FLUC100T42 MT (10:40)
[2019-09-10] MEDS: CEFEPIME 1,000 MG in DEXTROSE 5% WATER 50 ML IV SCH (14:07)
[2019-09-10 14:11] LABS: PLATELET ESTIMATE NORMAL
[2019-09-10] MEDS: METRONIDAZOLE 500 MG PREMIX 100 ML IV SCH ×2 (14:54→21:15)
[2019-09-10] MEDS: DIGOXIN 125MCG TABLET PO SCH (17:54)
[2019-09-10] MEDS ORDERED: WARFARIN SODIUM 2.5MG TABLET PO SCH (18:00)
[2019-09-10] MEDS: LORAZEPAM 2MG/ML CPJ IV PRN (18:53)
[2019-09-10] MEDS: QUETIAPINE FUMARATE 50MG TABLET PO SCH (21:14)
[2019-09-10] MEDS ORDERED: DIGOXIN 500MCG/2ML AMP IV SCH (23:00)
[2019-09-11] VITALS (31 sets, daily range): BP systolic 79–166; BP diastolic 39–120
[2019-09-11] MEDS: METOCLOPRAMIDE HCL 10MG/2ML VIAL IV SCH ×4 (00:14→17:40)
[2019-09-11] MEDS: ACETYLCYSTEINE 100MG/ML 10% VIAL 4ML INH SCH ×3 (00:28→15:37)
[2019-09-11] MEDS: IPRATROPIUM/ALBUTEROL 0.5-3(2.5)MG/3ML NEB HHN SCH ×6 (00:29→20:48)
[2019-09-11] MEDS: CEFEPIME 1,000 MG in DEXTROSE 5% WATER 50 ML IV SCH ×2 (00:33→12:27)
[2019-09-11] MEDS: TRAZODONE HCL 50MG TABLET PO PRN (02:46)
[2019-09-11] MEDS: METRONIDAZOLE 500 MG PREMIX 100 ML IV SCH ×3 (05:43→22:00)
[2019-09-11] MEDS: INSULIN LISPRO 100 UNITS/ML SUBCUT SCH ×3 (05:57→17:41)
[2019-09-11 06:22] LABS: INR 1.6; PROTHROMBIN TIME 15.9 sec (9.6-11.0)
[2019-09-11] MEDS: BLOOD SUGAR DIAGNOSTIC STRIP TEST SCH ×3 (07:50→17:44)
[2019-09-11] MEDS: METHYLPREDNISOLONE SOD SUCC 125 MG/2 ML VIAL IV SCH ×2 (08:55→16:23)
[2019-09-11] MEDS: CARBIDOPA/LEVODOPA 25/250MG TABLET PO SCH ×3 (08:56→16:24)
[2019-09-11] MEDS: GLIPIZIDE 10MG TABLET PO SCH ×2 (08:56→16:24)
[2019-09-11] MEDS: FLUCONAZOLE 100MG TABLET PEG SCH (08:56)
[2019-09-11] MEDS: ASPIRIN 81MG EC TABLET PO SCH (08:56)
[2019-09-11] MEDS: DOCUSATE SODIUM SUGAR FREE 100MG/10ML UDC NG SCH (08:56)
[2019-09-11] MEDS: QUETIAPINE FUMARATE 25MG TABLET PO SCH ×3 (08:56→16:24)
[2019-09-11] MEDS ORDERED: SORBITOL 70% SOLN 30ML PO NR (09:45)
[2019-09-11] MEDS: INSULIN GLARGINE UD 100 UNITS/ML SYR SUBCUT SCH ×2 (10:25→22:01)
[2019-09-11 11:50] LABS: BG BASE EXCESS 0.9 mmol/L (-2.0-2.0); BG CARBOXYHEMOGLOBIN 1.3 % (0.5-1.5); BG DEOXYHEMOGLOBIN 8.1 % (0.0-5.0); BG FRACTION INSPIRED OXYGEN 21; BG HCO3 ACT 23.3 mmol/L (22.0-26.0); BG METHEMOGLOBIN 0.3 % (0.0-1.5); BG OXYGEN SATURATION 91.8 % (92.0-98.5); BG OXYHEMOGLOBIN 90.3 % (94.0-97.0); BG PCO2 30.5 mmHg (35.0-45.0); BG PH 7.501 (7.350-7.450); BG PO2 61.9 mmHg (75.0-100.0); BG SAMPLE SITE RIGHT BRACHIAL; BG TOTAL HEMOGLOBIN 12.6 g/dL (12.0-18.0); BG VENT MODE ROOM AIR
[2019-09-11] MEDS: LORAZEPAM 2MG/ML CPJ IV PRN (13:43)
[2019-09-11] MEDS: LACTULOSE 20G/30ML UDC PO PRN (14:32)
[2019-09-11] MEDS: HALOPERIDOL LACTATE 5MG/ML VIAL IM PRN (16:23)
[2019-09-11] MEDS: DIGOXIN 125MCG TABLET PO SCH (17:40)
[2019-09-11 17:45] LABS: HEMATOCRIT. 28.7 % (42.0-52.0); HEMOGLOBIN. 9.6 g/dL (14.0-18.0); MEAN CORPUSCULAR HEMOGLOBIN 36.6 pg (28.0-32.0); MEAN CORPUSCULAR VOLUME 109.3 fL (80.0-94.0); MEAN PLATELET VOLUME 10.4 fl (7.4-10.4); PLATELET 264 x1000/uL (130-400); RED BLOOD CELL COUNT 2.62 mill/uL (4.7-6.1); RED CELL DISTRIBUTION WIDTH 22.1 % (11.6-14.6)
[2019-09-11] MEDS ORDERED: WARFARIN SODIUM 2.5MG TABLET PO NR (18:00)
[2019-09-11 18:01] LABS: CHLORIDE 113 mEq/L (98-107)
[2019-09-11 18:03] LABS: NUCLEATED RED BLOOD CELLS 2 /100 WBC; PLATELET ESTIMATE NORMAL
[2019-09-11] MEDS: QUETIAPINE FUMARATE 50MG TABLET PO SCH (22:00)
[2019-09-12] VITALS (10 sets, daily range): BP systolic 114–157; BP diastolic 52–77
[2019-09-12] MEDS: ACETYLCYSTEINE 100MG/ML 10% VIAL 4ML INH SCH ×3 (00:11→16:08)
[2019-09-12] MEDS: IPRATROPIUM/ALBUTEROL 0.5-3(2.5)MG/3ML NEB HHN SCH ×6 (00:11→20:42)
[2019-09-12] MEDS: METOCLOPRAMIDE HCL 10MG/2ML VIAL IV SCH ×4 (00:44→17:47)
[2019-09-12] MEDS: CEFEPIME 1,000 MG in DEXTROSE 5% WATER 50 ML IV SCH ×2 (00:44→12:46)
[2019-09-12] MEDS: INSULIN LISPRO 100 UNITS/ML SUBCUT SCH ×5 (00:52→21:20)
[2019-09-12] MEDS: BLOOD SUGAR DIAGNOSTIC STRIP TEST SCH ×4 (00:53→17:47)
[2019-09-12] MEDS: METRONIDAZOLE 500 MG PREMIX 100 ML IV SCH ×3 (05:35→21:03)
[2019-09-12 06:36] LABS: HEMOGLOBIN. 9.1 g/dL (14.0-18.0); MEAN CORPUSCULAR HEMOGLOBIN 36.9 pg (28.0-32.0); MEAN CORPUSCULAR VOLUME 109.9 fL (80.0-94.0); MEAN PLATELET VOLUME 10.2 fl (7.4-10.4); PLATELET 220 x1000/uL (130-400); RED BLOOD CELL COUNT 2.46 mill/uL (4.7-6.1); RED CELL DISTRIBUTION WIDTH 21.9 % (11.6-14.6)
[2019-09-12 07:03] LABS: INR 1.7; PROTHROMBIN TIME 17.6 sec (9.6-11.0)
[2019-09-12 07:08] LABS: CHLORIDE 112 mEq/L (98-107)
[2019-09-12] MEDS: DOCUSATE SODIUM SUGAR FREE 100MG/10ML UDC NG SCH (09:25)
[2019-09-12] MEDS: METHYLPREDNISOLONE SOD SUCC 125 MG/2 ML VIAL IV SCH ×2 (09:26→17:45)
[2019-09-12] MEDS: CARBIDOPA/LEVODOPA 25/250MG TABLET PO SCH ×3 (09:26→17:46)
[2019-09-12] MEDS: FLUCONAZOLE 100MG TABLET PEG SCH (09:27)
[2019-09-12] MEDS: QUETIAPINE FUMARATE 25MG TABLET PO SCH ×3 (09:27→17:46)
[2019-09-12] MEDS: GLIPIZIDE 10MG TABLET PO SCH ×2 (09:27→17:46)
[2019-09-12] MEDS: ASPIRIN 81MG EC TABLET PO SCH (09:27)
[2019-09-12] MEDS: INSULIN GLARGINE UD 100 UNITS/ML SYR SUBCUT SCH ×2 (10:09→21:20)
[2019-09-12 13:32] LABS: PLATELET ESTIMATE NORMAL
[2019-09-12] MEDS: DIGOXIN 125MCG TABLET PO SCH (17:46)
[2019-09-12] MEDS ORDERED: WARFARIN SODIUM 2.5MG TABLET PO NR (18:00)
[2019-09-12] MEDS: QUETIAPINE FUMARATE 50MG TABLET PO SCH (21:03)
[2019-09-13] VITALS: BP 109/54
[2019-09-13] MEDS: ACETYLCYSTEINE 100MG/ML 10% VIAL 4ML INH SCH ×3 (00:18→16:55)
[2019-09-13] MEDS: IPRATROPIUM/ALBUTEROL 0.5-3(2.5)MG/3ML NEB HHN SCH ×6 (00:18→20:48)
[2019-09-13] MEDS: METOCLOPRAMIDE HCL 10MG/2ML VIAL IV SCH ×4 (00:49→18:23)
[2019-09-13] MEDS: CEFEPIME 1,000 MG in DEXTROSE 5% WATER 50 ML IV SCH ×2 (00:49→12:33)
[2019-09-13] MEDS: LORAZEPAM 2MG/ML CPJ IV PRN (00:49)
[2019-09-13] MEDS: BLOOD SUGAR DIAGNOSTIC STRIP TEST SCH ×5 (01:14→22:12)
[2019-09-13 04:00] VITALS: BP 113/57
[2019-09-13] MEDS ORDERED: MORPHINE SULFATE 2 MG/ML CPJ (NOT FOR IM USE) IV PRN (05:00)
[2019-09-13] MEDS: METRONIDAZOLE 500 MG PREMIX 100 ML IV SCH (05:01)
[2019-09-13] MEDS: LACTULOSE 20G/30ML UDC PO PRN (05:25)
[2019-09-13] MEDS: INSULIN LISPRO 100 UNITS/ML SUBCUT SCH ×4 (05:25→22:20)
[2019-09-13 07:40] LABS: INR 2.1; PROTHROMBIN TIME 21.3 sec (9.6-11.0)
[2019-09-13 08:00] VITALS: BP 110/64
[2019-09-13] MEDS: METHYLPREDNISOLONE SOD SUCC 125 MG/2 ML VIAL IV SCH ×2 (09:38→18:23)
[2019-09-13] MEDS: QUETIAPINE FUMARATE 25MG TABLET PO SCH ×3 (09:38→18:23)
[2019-09-13] MEDS: ASPIRIN 81MG EC TABLET PO SCH (09:38)
[2019-09-13] MEDS: CARBIDOPA/LEVODOPA 25/250MG TABLET PO SCH ×3 (09:38→18:23)
[2019-09-13] MEDS: GLIPIZIDE 10MG TABLET PO SCH ×2 (09:38→18:23)
[2019-09-13] MEDS: FLUCONAZOLE 100MG TABLET PEG SCH (09:38)
[2019-09-13] MEDS: DOCUSATE SODIUM SUGAR FREE 100MG/10ML UDC NG SCH (09:38)
[2019-09-13] MEDS: INSULIN GLARGINE UD 100 UNITS/ML SYR SUBCUT SCH ×2 (10:01→22:19)
[2019-09-13] MEDS: POLYETHYLENE GLYCOL 3350 (17GM) 1 DOSE PACK PO SCH (13:53)
[2019-09-13] MEDS: METRONIDAZOLE 500MG TABLET GT SCH ×2 (15:21→22:20)
[2019-09-13] MEDS ORDERED: WARFARIN SODIUM 1MG TABLET PO SCH (18:00)
[2019-09-13] MEDS: DIGOXIN 125MCG TABLET PO SCH (18:23)
[2019-09-13 20:00] VITALS: BP 138/53
[2019-09-13] MEDS ORDERED: SORBITOL 70% SOLN 30ML PO NR (21:00)
[2019-09-13] MEDS ORDERED: DEXTROSE 50% WATER 50ML SYRINGE IV PRN (22:00)
[2019-09-13] MEDS ORDERED: SORBITOL 70% SOLN 30ML GT NR (22:15)
[2019-09-13] MEDS: QUETIAPINE FUMARATE 50MG TABLET GT SCH (22:20)
[2019-09-13] MEDS: HALOPERIDOL LACTATE 5MG/ML VIAL IM PRN (23:07)
[2019-09-14] VITALS (7 sets, daily range): BP systolic 98–134; BP diastolic 51–76
[2019-09-14] MEDS: IPRATROPIUM/ALBUTEROL 0.5-3(2.5)MG/3ML NEB HHN SCH ×6 (00:34→20:25)
[2019-09-14] MEDS: ACETYLCYSTEINE 100MG/ML 10% VIAL 4ML INH SCH ×3 (00:34→16:32)
[2019-09-14] MEDS: METOCLOPRAMIDE HCL 10MG/2ML VIAL IV SCH ×4 (01:02→18:48)
[2019-09-14] MEDS: CEFEPIME 1,000 MG in DEXTROSE 5% WATER 50 ML IV SCH ×2 (01:02→13:36)
[2019-09-14] MEDS: BLOOD SUGAR DIAGNOSTIC STRIP TEST SCH ×4 (06:08→21:00)
[2019-09-14] MEDS: INSULIN LISPRO 100 UNITS/ML SUBCUT SCH ×4 (06:24→23:45)
[2019-09-14 06:57] LABS: INR 2.9; PROTHROMBIN TIME 28.6 sec (9.6-11.0)
[2019-09-14] MEDS: POLYETHYLENE GLYCOL 3350 (17GM) 1 DOSE PACK PO SCH (08:49)
[2019-09-14] MEDS: GLIPIZIDE 10MG TABLET PO SCH ×2 (08:50→18:48)
[2019-09-14] MEDS: FLUCONAZOLE 100MG TABLET PEG SCH (08:50)
[2019-09-14] MEDS: ASPIRIN 81MG EC TABLET PO SCH (08:50)
[2019-09-14] MEDS: CARBIDOPA/LEVODOPA 25/250MG TABLET PO SCH ×3 (08:50→18:48)
[2019-09-14] MEDS: METHYLPREDNISOLONE SOD SUCC 125 MG/2 ML VIAL IV SCH ×2 (08:50→18:49)
[2019-09-14] MEDS: QUETIAPINE FUMARATE 25MG TABLET PO SCH ×3 (08:50→18:48)
[2019-09-14] MEDS: DOCUSATE SODIUM SUGAR FREE 100MG/10ML UDC NG SCH (08:51)
[2019-09-14] MEDS: INSULIN GLARGINE UD 100 UNITS/ML SYR SUBCUT SCH ×2 (10:24→23:45)
[2019-09-14] MEDS ORDERED: WARFARIN SODIUM 1MG TABLET PO SCH (18:00)
[2019-09-14] MEDS: DIGOXIN 125MCG TABLET PO SCH (18:48)
[2019-09-14] MEDS: QUETIAPINE FUMARATE 50MG TABLET GT SCH (22:31)
[2019-09-15] VITALS: BP 104/47
[2019-09-15] MEDS: CEFEPIME 1,000 MG in DEXTROSE 5% WATER 50 ML IV SCH ×3 (00:09)
[2019-09-15] MEDS: IPRATROPIUM/ALBUTEROL 0.5-3(2.5)MG/3ML NEB HHN SCH ×3 (00:55→08:49)
[2019-09-15 02:34] VITALS: BP_SYST 104; BP_SYST 93; BP_DIAS 66; BP_DIAS 77
[2019-09-15 04:00] VITALS: BP 128/61
[2019-09-15] MEDS: METOCLOPRAMIDE HCL 10MG/2ML VIAL IV SCH ×2 (06:00)
[2019-09-15] MEDS: HALOPERIDOL LACTATE 5MG/ML VIAL IM PRN (06:47)
[2019-09-15 06:56] LABS: HEMOGLOBIN 9.5 g/dL (14.0-18.0); MEAN CORPUSCULAR VOLUME 109.2 fL (80.0-94.0); PLATELET 210 x1000/uL (130-400); RED BLOOD CELL COUNT 2.56 mill/uL (4.7-6.1); RED CELL DISTRIBUTION WIDTH 21.7 % (11.6-14.6)
[2019-09-15] MEDS: BLOOD SUGAR DIAGNOSTIC STRIP TEST SCH (07:11)
[2019-09-15] MEDS: INSULIN LISPRO 100 UNITS/ML SUBCUT SCH (07:17)
[2019-09-15 07:32] LABS: INR 2.7; PROTHROMBIN TIME 26.2 sec (9.6-11.0)
[2019-09-15 08:00] VITALS: BP 93/66
[2019-09-15] MEDS: METHYLPREDNISOLONE SOD SUCC 125 MG/2 ML VIAL IV SCH (09:00)
[2019-09-15] MEDS: ASPIRIN 81MG EC TABLET PO SCH (09:15)
[2019-09-15] MEDS: GLIPIZIDE 10MG TABLET PO SCH (09:15)
[2019-09-15] MEDS: CARBIDOPA/LEVODOPA 25/250MG TABLET PO SCH (09:15)
[2019-09-15] MEDS: QUETIAPINE FUMARATE 25MG TABLET PO SCH (09:15)
[2019-09-15] MEDS: DOCUSATE SODIUM SUGAR FREE 100MG/10ML UDC NG SCH (09:15)
[2019-09-15] MEDS: FLUCONAZOLE 100MG TABLET PEG SCH (09:15)
[2019-09-15] MEDS: POLYETHYLENE GLYCOL 3350 (17GM) 1 DOSE PACK PO SCH (09:16)
[2019-09-15] MEDS: INSULIN GLARGINE UD 100 UNITS/ML SYR SUBCUT SCH (09:31)
== END 2019-09-15 11:00 | disposition home or self-care (01) | DRG 870 ==
LOC: ER 12:56 → EDBEDREQ 16:13 → ENRESERV 21:02 → 3WST 23:42 → CVICU 08-31 10:22 → 5WST 09-04 19:26 → CVICU 09-09 09:26 → 5WST 09-12 05:10
PROVIDERS: ADMIT Internal Medicine; ATTEND Internal Medicine
PROC: 5A1955Z Respiratory Ventilation, Greater than 96 Consecutive Hours (ICD-10-PCS; principal; 2019-08-31)
PROC: 0DH63UZ Insertion of Feeding Device into Stomach, Percutaneous Approach (ICD-10-PCS; 2019-09-09)
DX: A41.9 Sepsis, unspecified organism (principal); J18.9 Pneumonia, unspecified organism; I50.33 Acute on chronic diastolic (congestive) heart failure; J96.21 Acute and chronic respiratory failure with hypoxia; J96.22 Acute and chronic respiratory failure with hypercapnia; E44.1 Mild protein-calorie malnutrition; E87.1 Hypo-osmolality and hyponatremia; B37.81 Candidal esophagitis; D68.9 Coagulation defect, unspecified; I48.92 Unspecified atrial flutter; K56.7 Ileus, unspecified; K56.600 Partial intestinal obstruction, unspecified as to cause; I67.82 Cerebral ischemia; H70.13 Chronic mastoiditis, bilateral; E11.9 Type 2 diabetes mellitus without complications; E87.6 Hypokalemia; E87.8 Other disorders of electrolyte and fluid balance, not elsewhere classified; D50.9 Iron deficiency anemia, unspecified; I08.0 Rheumatic disorders of both mitral and aortic valves; G20 Parkinson's disease; I11.0 Hypertensive heart disease with heart failure; I25.2 Old myocardial infarction; K29.70 Gastritis, unspecified, without bleeding; K44.9 Diaphragmatic hernia without obstruction or gangrene; K56.41 Fecal impaction; M81.0 Age-related osteoporosis without current pathological fracture; N31.9 Neuromuscular dysfunction of bladder, unspecified; R13.12 Dysphagia, oropharyngeal phase; R62.7 Adult failure to thrive; Z95.0 Presence of cardiac pacemaker; Z95.5 Presence of coronary angioplasty implant and graft; Z74.01 Bed confinement status; N40.0 Benign prostatic hyperplasia without lower urinary tract symptoms; K57.90 Diverticulosis of intestine, part unspecified, without perforation or abscess without bleeding; I25.10 Atherosclerotic heart disease of native coronary artery without angina pectoris
CPT/HCPCS: 36415; 36600; 71045; 73030; 74018; 74176; 80048; 80162; 81003; 82375; 82607; 82747; 82805; 82962; 83036; 83605; 83735; 83880; 84145; 84484; 85014; 85027; 85384; 86850; 86900; 86927; 87070; 92610; 93005; 93306; 93970; 94003; 94640; 94644; 94660; 94667; 97161; 99291; A6261; C9113; J0692; J1160; J1630; J1650; J1815; J1940; J2060; J2250; J2270; J2543; J2765; J2920; J2930; J3010; J3370; J3480; J3490; J7030; J7040; J7060; J7512; J7608; J7611; J7620; P9017; A4315

== ENCOUNTER 2019-11-20 18:15 | Inpatient (IN) | payer BC, MEDICARE, OTHER ==
[~2019-11-20] VITALS: Ht 172.7 cm; Wt 80.7 kg
[~2019-11-20 18:15] MED LIST: ASCO500C15 PO; ASPI-1497 PO; CARB-33 PO; CARV6.2548 PO; CYAN-33 MT; DIGO125T80 MT; DOCU250C69 PO; FLUC100T42 MT; FURO40TA5 PO; GLIP10TA10 PO; QUET100T PO; QUET25TA PO; SIME125C81 PO; TAMS-11 PO; TEMA15CA PO; TRAZ150T78 PO; WARF1TAB46 PO
[2019-11-20] MEDS ORDERED: PIPERACILLIN/TAZ 3.375G PREMIX 50 ML IV ONE (20:15)
[2019-11-20] MEDS ORDERED: VANCOMYCIN 1 G PREMIX 200 ML IV ONE (20:15)
[2019-11-20] MEDS ORDERED: SODIUM CHLORIDE 0.9% 1000ML BAG (SEPSIS BOLUS) IV ONE (20:15)
[2019-11-20 20:42] LABS: INR 1.3; PROTHROMBIN TIME 14.5 sec (9.6-11.0)
[2019-11-20 20:44] LABS: CHLORIDE 103 mEq/L (98-107)
[2019-11-20] MEDS ORDERED: NOREPINEPHRINE 4MG/250ML PMX 250 ML IV ONE (20:44)
[2019-11-20 20:45] LABS: HEMATOCRIT. 27.4 % (42.0-52.0); HEMOGLOBIN. 9.5 g/dL (14.0-18.0); MEAN CORPUSCULAR VOLUME 106.7 fL (80.0-94.0); MEAN PLATELET VOLUME 12.1 fl (7.4-10.4); PLATELET 244 x1000/uL (130-400); RED BLOOD CELL COUNT 2.57 mill/uL (4.7-6.1); RED CELL DISTRIBUTION WIDTH 21.9 % (11.6-14.6)
[2019-11-20 21:06] LABS: DIGOXIN 1.1 ng/mL (0.9-2.0)
[2019-11-20 21:07] LABS: PLATELET ESTIMATE NORMAL
[2019-11-20 21:16] LABS: CLARITY URINE CLOUDY (CLEAR); COLOR URINE YELLOW (YELLOW); KETONES URINE NEGATIVE (NEGATIVE); LEUKOCYTE ESTERASE URINE 2+ (NEGATIVE); NITRITE URINE NEGATIVE (NEGATIVE); OCCULT BLOOD URINE NEGATIVE (NEGATIVE); PH URINE 7.5 (4.5-8.0); PROTEIN URINE NEGATIVE (NEGATIVE); SPECIFIC GRAVITY URINE 1.014 (1.005-1.030)
[2019-11-21] VITALS (40 sets, daily range): BP systolic 34–112; BP diastolic 14–64
[2019-11-21] MEDS ORDERED: NOREPINEPHRINE 4MG/250ML PMX 250 ML IV SCH (01:00)
[2019-11-21] MEDS ORDERED: QUETIAPINE FUMARATE 25MG TABLET GT PRN (01:15)
[2019-11-21] MEDS ORDERED: WATER IV PRN (02:00)
[2019-11-21] MEDS ORDERED: DEXT 5% IV PRN (02:00)
[2019-11-21] MEDS ORDERED: PHENYLEPHRINE IV PRN (02:00)
[2019-11-21] MEDS ORDERED: ETOMIDATE 2MG/ML 10ML VIAL IV ONE ×2 (06:43→06:45)
[2019-11-21] MEDS ORDERED: SUCCINYLCHOLINE CHLORIDE 200MG/10ML IV ONE ×2 (06:43→06:45)
[2019-11-21] MEDS ORDERED: MIDAZOLAM HCL 50 MG in DEXTROSE 5% WATER 40 ML IV ONE ×2 (06:45)
[2019-11-21] MEDS ORDERED: LORAZEPAM 2MG/ML CPJ IV ONE (06:45)
[2019-11-21] MEDS: NOREPINEPHRINE 4MG/250ML PMX 250 ML IV PRN ×2 (06:56→09:29)
[2019-11-21] MEDS ORDERED: ASPIRIN 300MG SUPP PR ONE (07:15)
[2019-11-21 07:29] LABS: BG BASE EXCESS 0.9 mmol/L (-2.0-2.0); BG CARBOXYHEMOGLOBIN 0.3 % (0.5-1.5); BG DEOXYHEMOGLOBIN 0.7 % (0.0-5.0); BG FRACTION INSPIRED OXYGEN 100; BG HCO3 ACT 25.1 mmol/L (22.0-26.0); BG METHEMOGLOBIN 0.2 % (0.0-1.5); BG OXYGEN SATURATION 99.3 % (92.0-98.5); BG OXYHEMOGLOBIN 98.8 % (94.0-97.0); BG PH 7.437 (7.350-7.450); BG PO2 424.3 mmHg (75.0-100.0); BG SAMPLE SITE RIGHT BRACHIAL; BG TIDAL VOLUME(mL) 600 mL; BG TOTAL HEMOGLOBIN 10.2 g/dL (12.0-18.0); BG VENT MODE VENT - A/C; BG VENT RATE 14 set
[2019-11-21] MEDS ORDERED: PHENYLEPHRINE 10 MG in DEXT 5% WATER 249 ML IV ONE (08:15)
[2019-11-21 08:25] LABS: T4 FREE 1.22 ng/dL (0.76-1.46)
[2019-11-21 08:36] LABS: DIGOXIN 1.2 ng/mL (0.9-2.0)
[2019-11-21] MEDS: CARBIDOPA/LEVODOPA 25/250MG TABLET GT SCH ×2 (08:55→13:30)
[2019-11-21] MEDS ORDERED: ASPIRIN 81MG TABLET PO SCH (11:00)
[2019-11-21] MEDS ORDERED: PHENYLEPHRINE 10 MG in DEXTROSE 5% WATER 250 ML IV PRN (12:00)
[2019-11-21] MEDS ORDERED: NOREPINEPHRINE 4 MG in DEXTROSE 5% WATER 250 ML IV PRN (12:00)
[2019-11-21] MEDS ORDERED: NOREPINEPHRINE 8 MG in DEXT 5% WATER 242 ML IV PRN (12:30)
[2019-11-21] MEDS ORDERED: FENTANYL CITRATE/PF 500 MCG in SODIUM CHLORIDE 0.9% 40 ML IV PRN (12:30)
[2019-11-21] MEDS ORDERED: MIDAZOLAM HCL 50 MG in DEXTROSE 5% WATER 40 ML IV PRN (12:30)
[2019-11-21] MEDS ORDERED: PHENYLEPHRINE 20 MG in DEXT 5% WATER 248 ML IV PRN (12:30)
[2019-11-21] MEDS ORDERED: VASOPRESSIN 10 UNIT in SODIUM CHLORIDE 0.9% 99.5 ML IV PRN (13:00)
[2019-11-21] MEDS ORDERED: ALBUMIN HUMAN 25GM/100ML (25%) IV NR (13:45)
[2019-11-21] MEDS ORDERED: PHENYLEPHRINE 40 MG in DEXT 5% WATER 246 ML IV PRN (14:00)
[2019-11-21] MEDS ORDERED: PIPERACILLIN/TAZOBACTAM 3.375 G in DEXT 5% WATER 100 ML IV SCH (15:00)
[2019-11-21] MEDS ORDERED: SODIUM BICARBONATE 8.4% 1 MEQ/ML 50ML SYR IV ONE (15:14)
[2019-11-21] MEDS ORDERED: DOPAMINE 400MG/250ML PREMIX 250 ML IV PRN (15:15)
[2019-11-21] MEDS ORDERED: SODIUM CHLORIDE 0.9% 1000ML BAG (SEPSIS BOLUS) IV ONE (15:15)
[2019-11-21] MEDS ORDERED: SODIUM BICARBONATE 8.4% 1 MEQ/ML 50ML SYR IV NR (15:15)
[2019-11-21 15:41] LABS: BG BASE EXCESS -1.9 mmol/L (-2.0-2.0); BG CARBOXYHEMOGLOBIN 0.3 % (0.5-1.5); BG DEOXYHEMOGLOBIN 4.5 % (0.0-5.0); BG FRACTION INSPIRED OXYGEN 40; BG HCO3 ACT 20.7 mmol/L (22.0-26.0); BG METHEMOGLOBIN 0.1 % (0.0-1.5); BG OXYGEN SATURATION 95.5 % (92.0-98.5); BG OXYHEMOGLOBIN 95.1 % (94.0-97.0); BG PH 7.487 (7.350-7.450); BG PO2 75.3 mmHg (75.0-100.0); BG SAMPLE SITE RIGHT RADIAL; BG TIDAL VOLUME(mL) 550 mL; BG TOTAL HEMOGLOBIN 10.1 g/dL (12.0-18.0); BG VENT MODE VENT - A/C; BG VENT RATE 14 set
[2019-11-21] MEDS ORDERED: IPRATROPIUM BROMIDE (0.02%) 0.5MG/2.5ML NEB HHN SCH (16:00)
[2019-11-21] MEDS ORDERED: VANCOMYCIN 1250MG in DEXTROSE 5% WATER 250ML IV SCH (16:00)
[2019-11-21] MEDS ORDERED: MEROPENEM 1,000 MG in SODIUM CHLORIDE 0.9% 100 ML IV SCH (16:30)
[2019-11-21 16:47] LABS: *AMPHETAMINES SCREEN URINE NEGATIVE (NEGATIVE); *BARBITURATES SCREEN URINE NEGATIVE (NEGATIVE); METHADONE URINE SCREEN NEGATIVE (NEGATIVE); OPIATES URINE SCREEN NEGATIVE (NEGATIVE); PHENCYCLIDINE URINE SCREEN NEGATIVE (NEGATIVE)
[2019-11-21 16:47] LABS: CREATINE KINASE MB FRACTION 12.1 ng/mL (0.5-3.6)
[2019-11-21 16:48] LABS: *BENZODIAZEPINES SCREEN URINE PRESUMTIVE POSITIVE (NEGATIVE); *COCAINE SCREEN URINE NEGATIVE (NEGATIVE); CANNABINOID URINE SCREEN NEGATIVE (NEGATIVE)
[2019-11-21] MEDS ORDERED: METRONIDAZOLE 500 MG PREMIX 100 ML IV SCH (17:00)
[2019-11-21] MEDS ORDERED: NOREPINEPHRINE 32 MG in DEXT 5% WATER 468 ML IV PRN (18:00)
== END 2019-11-21 17:05 | disposition expired | DRG 871 ==
LOC: ER 18:15 → MICUSO 23:06 → EDBEDREQ 23:09 → EDBEDREQTM 23:09 → EDBEDREQSVC 23:09 → ENRESERV 11-21 09:52
PROVIDERS: ADMIT Internal Medicine; ATTEND Internal Medicine
PROC: 06HY33Z Insertion of Infusion Device into Lower Vein, Percutaneous Approach (ICD-10-PCS; 2019-11-20)
PROC: 0BH17EZ Insertion of Endotracheal Airway into Trachea, Via Natural or Artificial Opening (ICD-10-PCS; principal; 2019-11-21)
PROC: 5A1935Z Respiratory Ventilation, Less than 24 Consecutive Hours (ICD-10-PCS; 2019-11-21)
PROC: 5A12012 Performance of Cardiac Output, Single, Manual (ICD-10-PCS; 2019-11-21)
PROC: 5A2204Z Restoration of Cardiac Rhythm, Single (ICD-10-PCS; 2019-11-21)
DX: A41.50 Gram-negative sepsis, unspecified (principal); J69.0 Pneumonitis due to inhalation of food and vomit; I21.4 Non-ST elevation (NSTEMI) myocardial infarction; J96.00 Acute respiratory failure, unspecified whether with hypoxia or hypercapnia; R65.21 Severe sepsis with septic shock; I50.41 Acute combined systolic (congestive) and diastolic (congestive) heart failure; D68.9 Coagulation defect, unspecified; E44.0 Moderate protein-calorie malnutrition; E87.2 Acidosis; K57.92 Diverticulitis of intestine, part unspecified, without perforation or abscess without bleeding; N39.0 Urinary tract infection, site not specified; D64.9 Anemia, unspecified; E11.9 Type 2 diabetes mellitus without complications; G20 Parkinson's disease; I11.0 Hypertensive heart disease with heart failure; I25.10 Atherosclerotic heart disease of native coronary artery without angina pectoris; I50.9 Heart failure, unspecified; J44.9 Chronic obstructive pulmonary disease, unspecified; R74.0 Nonspecific elevation of levels of transaminase and lactic acid dehydrogenase [LDH]; E87.5 Hyperkalemia; E11.65 Type 2 diabetes mellitus with hyperglycemia; I46.9 Cardiac arrest, cause unspecified; R13.10 Dysphagia, unspecified; Z79.01 Long term (current) use of anticoagulants; Z79.84 Long term (current) use of oral hypoglycemic drugs; Z68.27 Body mass index [BMI] 27.0-27.9, adult; Z79.899 Other long term (current) drug therapy; Z93.1 Gastrostomy status; Z95.0 Presence of cardiac pacemaker; Z79.82 Long term (current) use of aspirin
CPT/HCPCS: 36415; 36556; 36600; 71045; 80053; 80061; 80162; 80305; 81003; 82375; 82550; 82553; 82805; 82962; 83036; 83605; 83880; 84145; 84439; 84443; 84484; 85025; 85379; 87070; 87077; 87186; 87804; 93005; 93970; 94002; 99291; J0330; J1265; J2060; J2185; J2250; J2370; J2543; J3010; J3370; J3490; J7030; J7050; J7060; P9047